=== PATIENT | female | born 1965 | race Asian ===

== ENCOUNTER 2017-08-31 09:18 | Observation (INO) | payer OTHER ==
[~2017-08-31] VITALS: Ht 160 cm; Wt 80.0 kg
[~2017-08-31 09:18] MED LIST: LORTAB 5-325 M1 EACH PO; REGLAN10 MG PO
[2017-08-31 09:51] LABS: ADD MIUA? YES; BILIRUBIN NEGATIVE; BLOOD SMALL; COLOR YELLOW ((YELLOW)); GLUCOSE (STRIP) NEGATIVE; KETONES NEGATIVE; LEUKOCYTES LARGE; NITRITE NEGATIVE; PROTEIN (STRIP) NEGATIVE; SPECIFIC GRAVITY 1.015 (1.000-1.030); UROBILINOGEN 0.2 MG/DL (0.2-1.0)
[2017-08-31 10:05] LABS: BACTERIA RARE /HPF; EPITHELIAL CELLS 1+ /HPF; MUCUS TRACE /LPF; RED BLOOD CELLS 0-5 /HPF (0-5); UCUL ADDED? YES; WHITE BLOOD CELLS TNTC /HPF (0-5)
[2017-08-31 10:08] LABS: HEMATOCRIT 42.4 % (36.0-46.0); MCH 30.7 PG (29.0-34.0); MCHC 33.5 G/DL (30.0-36.0); MCV 91.6 FL (83-99); MEAN PLAT.VOLUME 9.6 uM^3 (9.5-12.4); PLATELET COUNT 196 K/uL (156-360); RBC DIS.WIDTH-CV 11.7 % (11.8-14.6); RBC DIS.WIDTH-SD 39.1 % (39-53); RED BLOOD COUNT 4.63 M/uL (3.80-5.20); WHITE BLOOD COUNT 4.6 K/uL (4.1-10.2)
[2017-08-31 10:16] LABS: CHLORIDE 104 mEq/L (99-109); POTASSIUM 4.3 mEq/L (3.7-5.4); SODIUM 138 mEq/L (136-147)
[2017-08-31 10:18] LABS: GLUCOSE 128 mg/dL (70-99)
[2017-08-31 10:19] LABS: ANION GAP 6 MEQ/L (2-14)
[2017-08-31 10:20] LABS: TOTAL BILIRUBIN 0.6 mg/dL (0.0-1.0)
[2017-08-31 10:22] LABS: ALKALINE PHOSPHATASE 65 IU/L (3-129); GFR ESTIMATE (CALCULATED) > 59 mL/min/
[2017-08-31 10:23] LABS: UREA NITROGEN (BUN) 12 mg/dL (9-23)
[2017-08-31 10:31] LABS: QUANTITATIVE HCG < 4.0 MIU/ML
[2017-08-31 15:20] LABS: TROP-I INTERPRETATION NEGATIVE; TROPONIN-I < 0.01 ng/mL (0.0-0.30)
[2017-08-31] MEDS ORDERED: METFORMIN HCL500 MG PO (15:53)
[2017-08-31] MEDS ORDERED: PROTONIX40 MG PO (15:54)
[2017-08-31] MEDS ORDERED: PENNSAID112 GM TP (15:54)
[2017-08-31 18:14] VITALS: BP 117/60
[2017-08-31 21:17] LABS: TROP-I INTERPRETATION NEGATIVE; TROPONIN-I 0.01 ng/mL (0.0-0.30)
[2017-09-01 03:46] VITALS: BP 107/58
[2017-09-01 04:16] LABS: TROP-I INTERPRETATION NEGATIVE; TROPONIN-I < 0.01 ng/mL (0.0-0.30)
[2017-09-01 07:31] VITALS: BP 132/65
[2017-09-01 08:51] LABS: POINT-OF-CARE METER ID UU13113700
[2017-09-01 09:01] LABS: D-DIMER ELISA < 150.00 ng/mLDDU (<230)
[2017-09-01 12:01] LABS: POINT-OF-CARE METER ID UU13113700
[2017-09-01 12:17] VITALS: BP 147/71
[2017-09-01] MEDS ORDERED: ASPIR 8181 M1 PO (14:59)
[2017-09-01] MEDS ORDERED: CIPRO250 MG PO (14:59)
== END 2017-09-01 15:33 | disposition home or self-care (01) ==
LOC: EME 09:18 → EDOF 15:39 → 5WEST 15:39 → EDOF 15:39 → ENRESERV 15:44 → 5WEST 18:06
PROVIDERS: Emergency Medicine; Hospitalist; Internal Medicine
DX: R07.89 Other chest pain (principal); E11.9 Type 2 diabetes mellitus without complications; R01.1 Cardiac murmur, unspecified; Z82.49 Family history of ischemic heart disease and other diseases of the circulatory system; K21.9 Gastro-esophageal reflux disease without esophagitis; Z90.49 Acquired absence of other specified parts of digestive tract; Z87.442 Personal history of urinary calculi; E66.9 Obesity, unspecified; Z83.3 Family history of diabetes mellitus; Z79.84 Long term (current) use of oral hypoglycemic drugs
CPT/HCPCS: 71010; 74177; 80053; 81003; 82948; 84484; 84702; 85027; 85379; 87086; 93005; 99281; 99285; G0378; J0696; J1885; J2405; J3010; J7030; J7050